=== PATIENT | female | born 1950 | race Caucasian/White ===

== ENCOUNTER → 2022-07-12 09:58 | Outpatient (CLI) | payer MEDICARE, SELFPAY ==
[2022-07-12 10:57] LABS: Add Manual Diff / Slide Review NO; Basophils Absolute Auto 0 /uL (0-100); Basophils Percent Auto 0.9 % (0-2); Eosinophils Absolute Auto 100 /uL (0-450); Eosinophils Percent Auto 1.2 % (2-4); Hematocrit 40.4 % (36-46); Hemoglobin 13.3 g/dL (12.0-16.0); Lymphocytes Absolute Auto 1100 /uL (1100-4500); Lymphocytes Percent Auto 21.9 % (25-40); Mean Corpuscular Hemoglobin 29.7 PG (26-34); Mean Corpuscular Volume 90.1 fL (80-100); Monocytes Absolute Auto 400 /uL (0-900); Monocytes Percent Auto 7.7 % (3-14); Neutrophils Absolute Auto 3300 /uL (1500-7000); Neutrophils Percent Auto 68.3 % (50-75); Platelet Count 242 X10^3/uL (150-400); Red Blood Cell Count 4.48 X10^6/uL (4.0-5.2); Red Cell Distribution Width 14.4 % (11.6-14.8); White Blood Cell Count 4.9 X10^3/uL (4.5-11.0)
[2022-07-12 11:15] LABS: Erythrocyte Sedimentation Rate 14 MM/HR (0-20)
[2022-07-12 11:17] LABS: Alanine Aminotransferase 18 IU/L (<35); Albumin 4.2 g/dL (3.5-5.0); Albumin Globulin Ratio 1.6 (1.0-2.8); Alkaline Phosphatase 74 U/L (38-126); Aspartate Aminotransferase 22 IU/L (14-36); BUN Creatinine Ratio 13.1 (6-22); Bilirubin Total 0.4 mg/dL (0.2-1.3); Blood Urea Nitrogen 11 mg/dL (7-17); Calcium 9.1 mg/dL (8.4-10.2); Carbon Dioxide 28 mmol/L (22-32); Chloride 103 mmol/L (98-107); Cholesterol 179 mg/dL (140-199); Estimated Glomerular Filt Rate > 60 mL/min (>60); Globulin 2.6 g/dL (1.7-4.1); Glucose 85 mg/dL (80-110); HDL Cholesterol 54 mg/dL (40-60); HEMOLYSIS < 15 (0-50); LDL Cholesterol Calculated 83 mg/dL (<100); Potassium 4.6 mmol/L (3.4-5.1); Sodium 138 mmol/L (137-145); Total Protein 6.8 g/dL (6.3-8.2); Triglycerides 211 mg/dL (35-150)
[2022-07-12 11:35] LABS: Vitamin D 25 Hydroxy (D3) 32.4 ng/mL (30.0-100.0)
[2022-07-12 11:48] LABS: Ferritin 544 ng/mL (11-264)
[2022-07-12 11:50] LABS: TSH w/ Reflex to FT4 1.58 uIU/mL (0.47-4.68)
[2022-07-12 12:19] LABS: Folate 5.2 ng/mL (2.76-20.0); Vitamin B12 876 pg/mL (239-931)
== END ==
PROVIDERS: PCP Family Medicine; Referring Provider Family Medicine; Visit Provider Family Medicine
DX: D50.8 Other iron deficiency anemias (principal); Z79.899 Other long term (current) drug therapy; K46.9 Unspecified abdominal hernia without obstruction or gangrene; M25.59 Pain in other specified joint; M79.10 Myalgia, unspecified site; Z78.0 Asymptomatic menopausal state; Z13.220 Encounter for screening for lipoid disorders; R53.83 Other fatigue
CPT/HCPCS: 36415; 80053; 80061; 82306; 82607; 82728; 82746; 84443; 85025; 85651

== ENCOUNTER → 2022-08-04 10:54 | Outpatient (CLI) | payer MEDICARE, SELFPAY ==
--- NOTE | 2022-08-04 | DI.US.S_ITS ---
PROCEDURE: US ABDOMEN LIMITED INDICATIONS: VENTRAL LUMP SUPERIOR TO UMBILICUS TECHNIQUE: Real-time focused scanning was performed of the abdomen, with image documentation. COMPARISON: None. FINDINGS: At the patient indicated area of clinical concern, the ventral abdominal wall superior to the umbilicus, an ovoid structure is present containing fluid and internal echoes with posterior acoustic shadowing. The findings are suspicious for a ventral abdominal wall hernia containing fluid and bowel, however a hernia neck is not visualized, possibly obscured by the posterior acoustic shadowing. This finding was noncompressible with transducer pressure. In the sagittal plane, this area measures approximately 5.3 x 2.3 cm. IMPRESSION: Findings suspicious for a ventral abdominal wall hernia superior to the umbilicus, corresponding to the patient indicated area of concern. A hernia neck was not visualized, possibly related to artifact. A non-specific soft tissue mass is not excluded. CT could be obtained for further evaluation if clinically indicated. Dictated by: Rodri Everett M.D. on 08/04/2022 at 12:57 Approved by: Rodri Everett M.D. on 08/04/2022 at 13:04
== END ==
PROVIDERS: PCP Family Medicine; Referring Provider Family Medicine; Visit Provider Family Medicine
DX: K46.9 Unspecified abdominal hernia without obstruction or gangrene (principal)
CPT/HCPCS: 76705

== ENCOUNTER → 2022-10-24 09:38 | Outpatient (CLI) | payer MEDICARE, SELFPAY ==
[2022-10-24 10:20] LABS: Add Manual Diff / Slide Review NO; Basophils Absolute Auto 0 /uL (0-100); Basophils Percent Auto 0.4 % (0-2); Eosinophils Absolute Auto 100 /uL (0-450); Eosinophils Percent Auto 1.2 % (2-4); Hematocrit 41.6 % (36-46); Lymphocytes Absolute Auto 1000 /uL (1100-4500); Lymphocytes Percent Auto 21.1 % (25-40); Mean Corpuscular HGB Conc 33.6 % (30-36); Mean Corpuscular Hemoglobin 29.9 PG (26-34); Mean Corpuscular Volume 89.1 fL (80-100); Monocytes Absolute Auto 400 /uL (0-900); Monocytes Percent Auto 7.9 % (3-14); Neutrophils Absolute Auto 3300 /uL (1500-7000); Neutrophils Percent Auto 69.4 % (50-75); Platelet Count 204 X10^3/uL (150-400); Red Blood Cell Count 4.67 X10^6/uL (4.0-5.2); Red Cell Distribution Width 14.9 % (11.6-14.8); White Blood Cell Count 4.8 X10^3/uL (4.5-11.0)
[2022-10-24 10:35] LABS: Alanine Aminotransferase 18 IU/L (<35); Albumin 4.1 g/dL (3.5-5.0); Albumin Globulin Ratio 1.4 (1.0-2.8); Alkaline Phosphatase 68 U/L (38-126); Aspartate Aminotransferase 22 IU/L (14-36); BUN Creatinine Ratio 14.8 (6-22); Bilirubin Total 0.6 mg/dL (0.2-1.3); Blood Urea Nitrogen 13 mg/dL (7-17); Calcium 8.8 mg/dL (8.4-10.2); Carbon Dioxide 30 mmol/L (22-32); Chloride 102 mmol/L (98-107); Cholesterol 213 mg/dL (140-199); Estimated Glomerular Filt Rate > 60 mL/min (>60); Glucose 93 mg/dL (80-110); HDL Cholesterol 51 mg/dL (40-60); HEMOLYSIS < 15 (0-50); LDL Cholesterol Calculated 116 mg/dL (<100); Potassium 4.3 mmol/L (3.4-5.1); Sodium 138 mmol/L (137-145); Total Protein 7.1 g/dL (6.3-8.2); Triglycerides 231 mg/dL (35-150)
[2022-10-24 11:08] LABS: Ferritin 395 ng/mL (11-264)
[2022-10-24 11:34] LABS: Creatinine Urine Random 50.2 mg/dL
[2022-10-24 11:46] LABS: Microalbumin Urine Random < 0.6 mg/dL (0-1.6)
== END ==
PROVIDERS: PCP Family Medicine; Referring Provider Family Medicine; Visit Provider Family Medicine
DX: I10 Essential (primary) hypertension (principal); D50.8 Other iron deficiency anemias; E78.2 Mixed hyperlipidemia
CPT/HCPCS: 36415; 80053; 80061; 82043; 82570; 82728; 85025

== ENCOUNTER 2022-11-23 13:06 | Observation (INO) | payer MEDICARE, SELFPAY ==
[2022-11-14 12:01] VITALS: BMI 45.7
[2022-11-21] VITALS (18 sets, daily range): BP systolic 101–177; BP diastolic 49–123; PULSE 73–99; RESP 11–94; TEMP 35.8–36.8; O2SAT 5–99; BMI 45.3
[2022-11-21] MEDS: LACTATED RINGERS 1,000 ML 42 ML IV ×3 (11:45→14:47)
[2022-11-21 12:05] LABS: COVID19 -Nasal RAPID Negative (Negative)
--- NOTE | 2022-11-21 12:35 | PM.PREOP ---
Pre-operative Note Interval Note History & Physical reviewed/Exam performed by Physician: Yes Changes to H&P: No
[2022-11-21] MEDS: CEFAZOLIN 2 GM/100 ML PREMIX 100 ML IV (12:50)
--- NOTE | 2022-11-21 13:18 | SUR.OPER ---
Supine on padded OR bed, head on pillow, pink anti-slide foam under torso. Right arm padded and tucked, left arm padded and extended on armboard. legs uncrossed, safety belt at thigh, tape over blanket over lower legs. Pt positioned per direction and supervision of Dr Betancourt.
[2022-11-21] MEDS: BUPIVACAINE 0.25% W/ EPI 30 ML VIAL INJ (13:44)
--- NOTE | 2022-11-21 15:46 | P.OP_ITS ---
Operative Date/Time/Diagnoses Date of procedure: 11/21/22 Time of procedure: 15:46 Pre-op diagnosis: Ventral hernia repair. Defect size 2 cm x 2 cm Post-op diagnosis: same Procedure & Clinicians Procedure: Laparoscopic ventral hernia repair Same procedure as scheduled: Yes Indications: Symptomatic ventral hernia with large sac. Surgeon: Dawna Betancourt Click Yes if Unassisted: Yes Anesthesia Type: General Operative Notes Findings: There was a large amount of content within the hernia sac which had been measured by ultrasound as up to 5 cm in size. The actual hernia defect was measured intraoperatively and found to be 2 cm x 2 cm. There was incarcerated omentum and some colon within the sac. Specimen(s): none sent Prosthetic devices, grafts, tissues, transplants, or devices: A composite Ventralex 12 x 8 cm mesh was placed Estimated Blood Loss (mL): 50 Procedure in detail: Patient was taken to the operating room and placed supine on the operating room table her right arm was tucked and her left was extended. Time-out was performed. Antibiotics were given and bilateral SCDs were in place. General endotracheal anesthesia was induced. The abdomen was then prepped and draped in the usual sterile fashion. The intra-abdominal space was accessed using an open technique a right lower quadrant 10 mm incision was made overlying the rectus muscle. The incision was then carried down through the subcutaneous tissue and the anterior rectus sheath was incised. Two 0 Vicryl sutures in an interrupted fashion were placed as stay sutures. Next the rectus muscle was gently split with a finger and the posterior sheath was grasped with a Raj due to the depth of this inner layer I had a difficult time using a direct visualization to open that posterior rectus sheath. Therefore I elevated the posterior fascia with the Raj and entered the abdominal space with varus needle. The water drop technique was used to verify an appropriate position and the insufflation was commenced with an opening pressure of 0 mmHg. The abdomen was then insufflated to a pressure of 15 mmHg. Patient tolerated this well. At this point I made a small incision in the posterior fascia using a long Metzenbaum scissors and placed the Min trocar into the abdomen. I blew up the balloon and secured the trocar in place. Next I placed a camera in the abdomen and inspected for trocar entry injury and none was seen. The midline ventral hernia was seen in the expected position above the umbilicus and contained large amount of omental tissue. Next accessory trocars 5 mm were placed in the lateral right abdomen under direct visualization after infusing local anesthesia. An additional 5 mm trocar was placed in the right lower quadrant using the same technique. Laparoscopic graspers were introduced into the abdomen and used to reduce the hernia contents. After relieving a large portion of omentum from the defect a small portion of colon could be seen entering as well. This was gently released from the defect. Next I incised the sac circumferentially to clear up the fascial edges. I then reduced the remainder of the hernia sac into the abdomen. I measured the fascial defect and selected the mesh which was prepared with 0 Prolene sutures placed in the 4 quadrants. It was then introduced into the abdomen and using a [employer] device I secured the stay sutures in the 4 quadrants of the mesh taking full-thickness fascial bites. After securing all 4 quadrants in the same fashion I turned my attention to inspecting the contents of the hernia sac that had been reduced in particular the portion of colon. This seemed intact and no injuries were appreciated. I decreased the pneumoperitoneum to 8 mmHg in order to secure the 0 Prolene sutures. I then removed the accessory trocars under direct visualization and desufflated the abdomen. The previously placed stay sutures had been inadvertently removed by the surgical elastic knitter and 2 Raj graspers were used to find the anterior rectus sheath and replace an 0 Vicryl suture in a [id number] to close the 10 mm port site in the right lower quadrant. The skin of all of the trocar sites was then closed with running 4-0 Monocryl and dressed with skin glue. Patient tolerated the procedure well and went in good condition to the postoperative care unit EBL was 50 mL and there were no complications. Complications: none Post-operative Condition: stable Disposition: PACU Plan for aftercare: admit to floor.
[2022-11-21] MEDS: HYDROMORPHONE 2 MG INJ (16:31)
[2022-11-21] MEDS: OXYCODONE IR 5 MG TABLET PO (16:55)
[2022-11-21] MEDS: HYDROMORPHONE 1 MG INJ IV (19:05)
[2022-11-21] MEDS: DOCUSATE 100 MG CAPSULE PO (21:33)
[2022-11-21] MEDS: OXYCODONE IR 10 MG TABLET PO (21:33)
[2022-11-21] MEDS: KETOROLAC 30 MG/ML VIAL IV (21:46)
[2022-11-21] MEDS: ACETAMINOPHEN 325 MG TABLET 975 MG PO (21:47)
[2022-11-22] VITALS (8 sets, daily range): BP systolic 97–137; BP diastolic 45–67; PULSE 63–83; RESP 14–18; TEMP 36.4–36.8; O2SAT 92–97
[2022-11-22] MEDS: KETOROLAC 30 MG/ML VIAL IV (03:56)
[2022-11-22] MEDS: OXYCODONE IR 10 MG TABLET PO ×2 (03:56→14:11)
[2022-11-22] MEDS: ACETAMINOPHEN 325 MG TABLET 975 MG PO ×4 (03:57→23:01)
[2022-11-22 05:57] LABS: Estimated Glomerular Filt Rate > 60 mL/min (>60)
[2022-11-22] MEDS: OXYCODONE IR 5 MG TABLET PO (08:33)
[2022-11-22] MEDS: DOCUSATE 100 MG CAPSULE PO ×2 (08:33→21:17)
[2022-11-22] MEDS: ENOXAPARIN 40 MG/0.4 ML SYRINGE SUBCUT ×2 (08:33→21:16)
[2022-11-22] MEDS: KETOROLAC 30 MG/ML VIAL 15 MG IV ×3 (09:24→23:01)
--- NOTE | 2022-11-22 09:33 | P.PN_ITS ---
Subjective Subjective Date Patient Seen: 11/22/22 Interval history: Ms. Leigh is having lot of pain this morning. She is tolerating a regular diet and denies nausea. According to the bedside RN after a few doses of the oral pain medication her pain level has been at a 2 and so seems to be improving. She has been out of bed a few times to go to the bathroom but has not had a lot of activity. Exam Vital Signs (past 8 hours): - 11/22/22 04:00 11/22/22 08:00 11/22/22 08:00 Temperature 97.6 F 98.3 F Pulse Rate 83 81 Respiratory Rate 17 18 Blood Pressure 137/61 104/54 L Pulse Oximetry 95 96 97 Oxygen Delivery Method Room Air Oxygen Flow Rate 2 2 0 Oxygen Delivery Method Room Air Oxygen Flow Rate 0 Narrative Exam Narrative: She is awake and oriented in no acute distress she is pleasant and appropriate The wounds are clean dry and intact. There may be some mild distention of the abdomen. Objective Labs 11/22/22 05:35 Labs: Laboratory Results - last 24 hr 11/21/22 11/22/22 11:35 05:35 Creatinine 0.79 Estimated GFR > 60 SARS-CoV-2 (PCR) Negative [facility] Medical History (Updated 11/22/22 @ 15:20 by Dawna Betancourt MD) Arthritis Breast cancer (05/2017) Former smoker History of transfusion (2008) HTN (hypertension) Surgical History (Updated 11/14/22 @ 12:12 by Madison Mart RN) Hx of appendectomy (1971) Hx of cholecystectomy (2010) Hx of colonoscopy Hx of tubal ligation (1976) Social History household members: spouse Smoking Status: Former smoker alcohol intake: current Assessment & Plan Assessment and plan (1) Ventral hernia: Qualifiers: Obstruction and gangrene presence: without obstruction or gangrene Qualified Code(s): K43.9 - Ventral hernia without obstruction or gangrene Status: Acute (2) Postoperative pain: Status: Acute (3) Postoperative abdominal pain: Status: Acute Assessment & Plan narrative: She may advance diet as tolerated and continue regular diet if she is tolerating it. Today I would like to see if we can adjust her to only oral pain medications. I would like to try to mobilize her and get her out of bed to the bedside chair at least 3 times a day. I would like to try to encourage her to ambulate and do the incentive spirometer. If she is still continuing to have difficulty with movement and ambulation tomorrow I will ask for physical therapy evaluation. Anticipate home tomorrow.
--- NOTE | 2022-11-22 11:24 | CM.DANOTE ---
Initial DCP Assessment Note Pt is a 72 yo female, resident of [place], now POD#1 from Laparoscopic ventral hernia repair PCP: Clari Felton Payer: IRENE[employer] Met w/patient to introduce self and role. Patient indp a baseline and assists her who has mild memory loss- mostly needs reminders, med management and some cueing around their home Patient has a niece and sister that are supportive and plan to assist patient and her spouse throughout patient's recovery Patient denies needs from this SHIELD OPERATOR and states appreciation for the visit today CM team will plan to follow closely in case any DC needs or concerns arise, however, expect that patient will discharge home w/family to assist and close outpatient f/u RUSTAM Fonseca Discharge Planning/Care Management Discharge Assessment Start: 11/22/22 11:21 Freq: Status: Active Protocol: Document 11/22/22 11:21 [facility] (Rec: 11/22/22 11:24 [facility] [id number]) Discharge Planning Assessment Assigned Ukrainian Folk Arts Instructor RUSTAM Cordon DPOA/Assigned Designee Name Josh [place], spouse (mild dementia) Contact Information [phone] Advance Directives? Yes Advance Directives on File Yes History Provided By Patient Prior Living Arrangements RV Household Members spouse Type of transporation used prior to Drives own vehicle admit Independent with ADL's Yes Is patient alert and oriented? Yes Barriers to Discharge No Discharge Plan Home
--- NOTE | 2022-11-22 11:40 | PT.IIE ---
Current Diagnoses Other acute postprocedural pain (11/21/22) Ventral hernia without obstruction or gangrene (11/21/22) Unspecified abdominal pain (11/21/22) Surgery Performed Operation Date: 11/21/22 12:30 Actual Procedures p Laparoscopic Ventral Hernia Repair(Not Applicable) - Dawna Betancourt MD Surgical History (Last Updated 11/14/22 @ 12:12 by Madison Mart, RN) Hx of appendectomy (1971) Hx of cholecystectomy (2010) Hx of colonoscopy Hx of tubal ligation (1976) Medical History (Last Updated 11/14/22 @ 12:12 by Madison Mart RN) Arthritis Breast cancer (05/2017) Former smoker History of transfusion (2008) HTN (hypertension) Physical Therapy Inpatient Evaluation/Re-Eval M1 PT/OT-IP Prior Functional Status Start: 11/22/22 11:42 Freq: NEEDED Status: Active Protocol: Document 11/22/22 11:43 [facility] (Rec: 11/22/22 11:56 [facility] [id number]) Medical Review Prior Functional Status Medical History Reviewed Yes Communication communication with nursing prior to PT Mobility and Gait pt ambulated IND prior to surgery Social History Household Members spouse Living Arrangements RV Number of Floors (Floors) One Floor Number of Stairs To Enter/Railing? 3 steps with rail on one side Home Environment Standard Height Toilet M2 PT-IP Current Condition Start: 11/22/22 11:42 Freq: NEEDED Status: Active Protocol: Document 11/22/22 11:43 [facility] (Rec: 11/22/22 11:56 [facility] [id number]) Physical Therapy Current Condition Current Condition Evaluation Date 11/22/22 Treatment Diagnosis s/p post op hernia repair Onset Date 11/21/22 M3 PT-IP Subjective Start: 11/22/22 11:42 Freq: NEEDED Status: Active Protocol: Document 11/22/22 11:43 [facility] (Rec: 11/22/22 11:56 [facility] [id number]) Subjective Physical Therapy Visit Type Type Initial Evaluation Visit Start Time 11:20 Visit Stop Time 11:40 Total Visit Minutes 20 Therapy Pain Assessment Pain When Pain Assessed At Rest Pain Present Pain Present Pain Reported Location abdomen Intensity 3 Scale Used Numeric (0 - 10) Description With Movement Pain Management Techniques Timing of Activity with Medications M4 PT-IP Mobility and Gait Start: 11/22/22 11:42 Freq: NEEDED Status: Active Protocol: Document 11/22/22 11:43 [facility] (Rec: 11/22/22 11:56 [facility] [id number]) PT-Transfer Assessment Sit to and From Stand Sit to and from Stand Contact Guard Assistance Equipment Transfer Assistive Device Gait Belt,Front Wheeled Walker Orthotic/Prosthetic Devices or Brace: No Transfer Ability Level of Assist Contact Guard Assistance Comments Mobility Comments pt was sitting up in the bedside chair as she had just gotten up with nursing. She had ambulated to the bathroom with fww and then to the bedside chair. She agreed to PT eval even though she was a little fatigued from earlier activity. Pt was CGA for sit- stand. She was able to push up through the arm rests of the chair. I did use a gait belt up high above the hernia repair incision Gait Assessment Gait Gait Assistance Required: Contact Guard Assist Distance (Feet) 20 Able to Maintain Weight Bearing Status Yes During Gait Assistive Devices Assistive Device Gait Belt,Front Wheeled Walker Orthotic/Prosthetic Devices or Brace: No Gait Deviations General Gait Pattern Within Normal Limits,Ataxic, Wide Based Gait Factors Limiting Gait Function Factors Limiting Gait Function Decreased Activity Tolerance, Pain Comments Gait Comments pt ambulated in room with FWW. She was CGA. Pt has 3 steps to get up to her RV but she did not feel she was up to attempting steps this am. I did work with her on gait with CGA and without the walker as she is not sure she needs a walker for home. She was able to stay steady on her feet with arm support and moving slowly and she walked 10 feet without fww. Pt notes it is approximately a car length walk on gravel to get to her RV and she doesn't think a walker would work as she would have to pick it up. She prefers walking with her for support. M5 PT-IP Objective Assessments Start: 11/22/22 11:42 Freq: NEEDED Status: Active Protocol: Document 11/22/22 11:43 [facility] (Rec: 11/22/22 11:56 [facility] [id number]) Orientation Orientation/Cognition Level of Alertness Alert Gross Range of Motion Upper Extremity ROM Assessment Within Functional Limits Lower Extremity ROM Assessment Within Functional Limits Strength Upper Extremity Strength Assessment Within Functional Limits Lower Extremity Strength Assessment Within Functional Limits Coordination Assessment Gross Coordination Gross Coordination WNL M6 PT-IP Treatment Start: 11/22/22 11:42 Freq: NEEDED Status: Active Protocol: Document 11/22/22 11:43 [facility] (Rec: 11/22/22 11:56 [facility] [id number]) Physical Therapy Treatment Exercises Exercises Ankle Pumps M7 PT-IP Assessment and Plan Start: 11/22/22 11:42 Freq: NEEDED Status: Active Protocol: Document 11/22/22 11:43 [facility] (Rec: 11/22/22 11:56 [facility] [id number]) PT Summary Assessment and Plan Potential Rehabilitation Potential Excellent Status of Condition at Evaluation Stable Summary Impairments Pain,Transfers,Gait,Activity Tolerance Assessment Summary pt is a 72 year old female 1 day S/P ventral hernia repair. Pt plans on DC home tomorrow with her and also has a sister and niece who live near by who will be checking on her. She lives in [facility]. Pt has 3 steps to get up into her RV with one rail. She was sitting up in the bedside chair when PT arrived today and had just ambulated with nursing to the bathroom with FWW. Patient presented with CGA for transfers and gait x 20 feet in room with FWW. I did also work with her on ambulation without walker and supported her left elbow which she did well with. As mentioned above she has a car length distance to ambulate prior to entering her RV and it is on gravel so she is concerned about using a walker and would like to use her for support to ambulate this distance. She was able to demonstrate good mobility with me for support and I feel she would be able to do this for transfering into her RV. She will need stair training in the AM prior to DC as she did not feel up to attempting stairs this am. Goals Bed Mobility Goal Independent Transfer Goal Standby Assistance Gait Goal Contact Guard Assistance Gait Distance 50 Other Goals pt is able to ambulate up and down 3 stairs with right sided railing Frequency of Treatment Frequency Of Treatment Once a Day Treatment Plan Physical Therapy Treatment Plan Transfer Training,Gait Training Other Recommendations and Next Treatment work on stair training in am Focus prior to DC home Discharge Recommendations Transportation Needs at Discharge Private Vehicle
--- NOTE | 2022-11-22 11:56 | PT.IIE ---
Current Diagnoses Ventral hernia without obstruction or gangrene (11/21/22) Surgery Performed Operation Date: 11/21/22 12:30 Actual Procedures p Laparoscopic Ventral Hernia Repair(Not Applicable) - Dawna Betancourt MD Surgical History (Last Updated 11/14/22 @ 12:12 by Madison Mart, RN) Hx of appendectomy (1971) Hx of cholecystectomy (2010) Hx of colonoscopy Hx of tubal ligation (1976) Medical History (Last Updated 11/14/22 @ 12:12 by Madison Mart RN) Arthritis Breast cancer (05/2017) Former smoker History of transfusion (2008) HTN (hypertension) Physical Therapy Inpatient Evaluation/Re-Eval M1 PT/OT-IP Prior Functional Status Start: 11/22/22 11:42 Freq: NEEDED Status: Active Protocol: Document 11/22/22 11:43 [facility] (Rec: 11/22/22 11:56 [facility] [id number]) Medical Review Prior Functional Status Medical History Reviewed Yes Communication communication with nursing prior to PT Mobility and Gait pt ambulated IND prior to surgery Social History Household Members spouse Living Arrangements RV Number of Floors (Floors) One Floor Number of Stairs To Enter/Railing? 3 steps with rail on one side Home Environment Standard Height Toilet M2 PT-IP Current Condition Start: 11/22/22 11:42 Freq: NEEDED Status: Active Protocol: Document 11/22/22 11:43 [facility] (Rec: 11/22/22 11:56 [facility] [id number]) Physical Therapy Current Condition Current Condition Evaluation Date 11/22/22 M3 PT-IP Subjective Start: 11/22/22 11:42 Freq: NEEDED Status: Active Protocol: Document 11/22/22 11:43 [facility] (Rec: 11/22/22 11:56 [facility] [id number]) Subjective Physical Therapy Visit Type Type Initial Evaluation Visit Start Time 11:20 Visit Stop Time 11:40 Total Visit Minutes 20 Therapy Pain Assessment Pain When Pain Assessed At Rest Pain Present Pain Present Pain Reported Location abdomen Intensity 3 Scale Used Numeric (0 - 10) Description With Movement Pain Management Techniques Timing of Activity with Medications M4 PT-IP Mobility and Gait Start: 11/22/22 11:42 Freq: NEEDED Status: Active Protocol: Document 11/22/22 11:43 [facility] (Rec: 11/22/22 11:56 [facility] [id number]) PT-Transfer Assessment Sit to and From Stand Sit to and from Stand Contact Guard Assistance Equipment Transfer Assistive Device Gait Belt,Front Wheeled Walker Orthotic/Prosthetic Devices or Brace: No Transfer Ability Level of Assist Contact Guard Assistance Comments Mobility Comments pt was sitting up in the bedside chair as she had just gotten up with nursing. She had ambulated to the bathroom with fww and then to the bedside chair. She agreed to PT eval even though she was a little fatigued from earlier activity. Pt was CGA for sit- stand. She was able to push up through the arm rests of the chair. I did use a gait belt up high above the hernia repair incision Gait Assessment Gait Gait Assistance Required: Contact Guard Assist Distance (Feet) 20 Able to Maintain Weight Bearing Status Yes During Gait Assistive Devices Assistive Device Gait Belt,Front Wheeled Walker Orthotic/Prosthetic Devices or Brace: No Gait Deviations General Gait Pattern Within Normal Limits,Ataxic, Wide Based Gait Factors Limiting Gait Function Factors Limiting Gait Function Decreased Activity Tolerance, Pain Comments Gait Comments pt ambulated in room with FWW. She was CGA. Pt has 3 steps to get up to her RV but she did not feel she was up to attempting steps this am. I did work with her on gait with CGA and without the walker as she is not sure she needs a walker for home. She was able to stay steady on her feet with arm support and moving slowly and she walked 10 feet without fww. Pt notes it is approximately a car length walk on gravel to get to her RV and she doesn't think a walker would work as she would have to pick it up. She prefers walking with her for support. M5 PT-IP Objective Assessments Start: 11/22/22 11:42 Freq: NEEDED Status: Active Protocol: Document 11/22/22 11:43 [facility] (Rec: 11/22/22 11:56 [facility] [id number]) Orientation Orientation/Cognition Level of Alertness Alert Gross Range of Motion Upper Extremity ROM Assessment Within Functional Limits Lower Extremity ROM Assessment Within Functional Limits Strength Upper Extremity Strength Assessment Within Functional Limits Lower Extremity Strength Assessment Within Functional Limits Coordination Assessment Gross Coordination Gross Coordination WNL M6 PT-IP Treatment Start: 11/22/22 11:42 Freq: NEEDED Status: Active Protocol: Document 11/22/22 11:43 [facility] (Rec: 11/22/22 11:56 [facility] [id number]) Physical Therapy Treatment Exercises Exercises Ankle Pumps M7 PT-IP Assessment and Plan Start: 11/22/22 11:42 Freq: NEEDED Status: Active Protocol: Document 11/22/22 11:43 [facility] (Rec: 11/22/22 11:56 [facility] [id number]) PT Summary Assessment and Plan Potential Rehabilitation Potential Excellent Status of Condition at Evaluation Stable Summary Impairments Pain,Transfers,Gait,Activity Tolerance Assessment Summary pt is a 72 year old female 1 day S/P ventral hernia repair. Pt plans on DC home tomorrow with her and also has a sister and niece who live near by who will be checking on her. She lives in a RV at [facility]. Pt has 3 steps to get up into her RV with one rail. She was sitting up in the bedside chair when PT arrived today and had just ambulated with nursing to the bathroom with FWW. Patient presented with CGA for transfers and gait x 20 feet in room with FWW. I did also work with her on ambulation without walker and supported her left elbow which she did well with. As mentioned above she has a car length distance to ambulate prior to entering her RV and it is on gravel so she is concerned about using a walker and would like to use her for support to ambulate this distance. She was able to demonstrate good mobility with me for support and I feel she would be able to do this for transferring into her RV. She will need stair training in the AM prior to DC as she did not feel up to attempting stairs this am. Goals Bed Mobility Goal Independent Transfer Goal Standby Assistance Gait Goal Contact Guard Assistance Gait Distance 50 Other Goals pt is able to ambulate up and down 3 stairs with right sided railing Frequency of Treatment Frequency Of Treatment Once a Day Treatment Plan Physical Therapy Treatment Plan Transfer Training,Gait Training Other Recommendations and Next Treatment work on stair training in am Focus prior to DC home Discharge Recommendations Transportation Needs at Discharge Private Vehicle
[2022-11-22] MEDS: ONDANSETRON 4 MG/2 ML INJ IV (18:58)
[2022-11-22] MEDS: HYDROMORPHONE 1 MG INJ IV (18:58)
[2022-11-22] MEDS: SODIUM CHLORIDE 0.9% FLUSH 10 ML IV (23:02)
[2022-11-23] VITALS (8 sets, daily range): BP systolic 108–138; BP diastolic 52–81; PULSE 69–83; RESP 18–20; TEMP 35.7–36.6; O2SAT 91–98
[2022-11-23] MEDS: ACETAMINOPHEN 325 MG TABLET 975 MG PO ×3 (04:44→18:41)
[2022-11-23] MEDS: KETOROLAC 30 MG/ML VIAL 15 MG IV ×3 (04:44→18:01)
[2022-11-23] MEDS: SODIUM CHLORIDE 0.9% FLUSH 10 ML IV ×3 (04:45→21:01)
[2022-11-23] MEDS: ONDANSETRON 4 MG/2 ML INJ IV ×2 (07:48→16:15)
[2022-11-23] MEDS: ENOXAPARIN 40 MG/0.4 ML SYRINGE SUBCUT (09:19)
[2022-11-23] MEDS: DOCUSATE 100 MG CAPSULE PO ×2 (09:19→21:01)
--- NOTE | 2022-11-23 11:45 | PT.IPTN ---
Current Diagnoses Other acute postprocedural pain (11/21/22) Ventral hernia without obstruction or gangrene (11/21/22) Unspecified abdominal pain (11/21/22) Surgery Performed Operation Date: 11/21/22 12:30 Actual Procedures p Laparoscopic Ventral Hernia Repair(Not Applicable) - Dawna Betancourt MD Physical Therapy Treatment Note M2 PT-IP Current Condition Start: 11/22/22 11:42 Freq: NEEDED Status: Active Protocol: Document 11/23/22 10:57 SP (Rec: 11/23/22 12:16 SP [id number]) Physical Therapy Current Condition Current Condition Evaluation Date 11/22/22 Treatment Diagnosis s/p post op hernia repair Onset Date 11/21/22 M3 PT-IP Subjective Start: 11/22/22 11:42 Freq: NEEDED Status: Active Protocol: Document 11/23/22 10:57 SP (Rec: 11/23/22 12:16 SP [id number]) Subjective Physical Therapy Visit Type Type Treatment Note Visit Start Time 10:57 Visit Stop Time 11:45 Total Visit Minutes 48 Notes in room, completed caregiver training including don gait belt, support during gait/transfers. Number of COMMISSIONER OF INTERNAL REVENUE Visits 1 Therapy Pain Assessment Pain When Pain Assessed During Mobility Pain Present Pain Present Pain Reported Location abdomen Intensity 4 Pain Management Techniques Distraction,Re-positioning, Timing of Activity with Medications M4 PT-IP Mobility and Gait Start: 11/22/22 11:42 Freq: NEEDED Status: Active Protocol: Document 11/23/22 10:57 SP (Rec: 11/23/22 12:16 SP [id number]) PT-Bed Mobility Assessment Rolling Type of Rolling Log Rolling,Roll to Left Level of Assist Contact Guard Assistance,1 Person Assistance Sit to Supine Sit to Supine Moderate Assistance,1 Person Assistance,Bedrails PT-Transfer Assessment Sit to and From Stand Sit to and from Stand Standby Assistance,Contact Guard Assistance,Use of Upper Extremities Equipment Transfer Assistive Device None,Gait Belt,Front Wheeled Walker Orthotic/Prosthetic Devices or Brace: No Transfers Transfer Destination Bed,Wheelchair Transfer Technique ambulated no AD Min A, CG/SBA w/ FWW Comments Mobility Comments Extra time taken assess vitals / O2 for safety: BP 129/80 HR 69 SaO2 94% on 2L, Mid 80s on RA, 87% on1L, Mobility 87-94% on 2L with increased respiratory rate. Completed gait room DUTY OFFICER R UE Mod pressure support for stability 10 ft and had to stop catch breath while additional reaching for end of bed extra support. Improved CG/ SBA w/ FWW and agreed will need at home use. Gait to w/c in hallway 10ft SBA therapist managed Supplimental O2 line, good step back w/ FWW fully and reach wc slow descent SBA. wheeled to stairs, complete 3 stairs BUE on L HR CGA via slow steady/ stable. Gait further distance back to room approx 200 ft w/c follow but not needed appor x91-94% on 2L required, cued slow breath and pacing for energy conservation safety. stand>sit SBA>supine Mod A for BLEs into bed cues for use bed rail and lay on side then log roll to back with good ab fac support low pain. Gait Assessment Gait Gait Assistance Required: Standby Assistance,Contact Guard Assist,1 Person Assist Distance (Feet) 200 Able to Maintain Weight Bearing Status Yes During Gait Assistive Devices Assistive Device None,Gait Belt,Front Wheeled Walker Orthotic/Prosthetic Devices or Brace: No Gait Deviations General Gait Pattern Within Normal Limits,Ataxic, Decreased Stride Length, Decreased Feet Clearance,Wide Based Gait Factors Limiting Gait Function Factors Limiting Gait Function Decreased Activity Tolerance, Decreased Strength,Pain,Poor Balance,Respiratory Distress Comments Gait Comments cued upright posturing slow pacing control. Stair Climbing Assessment Evaluation Level of Assist On Stairs Contact Guard Assistance,1 Person Assistance Devices Stair Climbing Assistive Devices Left Railing Technique/Endurance Stair Climbing Direction Ascend and Descend Stair Climbing Technique Step to Step Number of Steps Climbed 3 Stair Climbing Set # Repetitions (reps) 1 Comments Stair Climbing Comments mod heavy UE support on LHR. slow and stable. PT-Balance Assessment Sitting Balance and Reactions Static Sitting Balance Ability Good Dynamic Sitting Balance Ability Good Standing Balance and Reactions Static Standing Balance Ability Fair Dynamic Standing Balance Ability Poor Device Used DUTY OFFICER poor, w/ FWW good M5 PT-IP Objective Assessments Start: 11/22/22 11:42 Freq: NEEDED Status: Active Protocol: Document 11/22/22 11:43 [facility] (Rec: 11/22/22 11:56 [facility] [id number]) Orientation Orientation/Cognition Level of Alertness Alert Gross Range of Motion Upper Extremity ROM Assessment Within Functional Limits Lower Extremity ROM Assessment Within Functional Limits Strength Upper Extremity Strength Assessment Within Functional Limits Lower Extremity Strength Assessment Within Functional Limits Coordination Assessment Gross Coordination Gross Coordination WNL M6 PT-IP Treatment Start: 11/22/22 11:42 Freq: NEEDED Status: Active Protocol: Document 11/23/22 10:57 SP (Rec: 11/23/22 12:16 SP [id number]) Physical Therapy Treatment Exercises Exercises Ankle Pumps Other Treatments Other Treatment Performed cued core fac during mobility for support and pain control. Ed for support upright sitting to allow abdominal support. M7 PT-IP Assessment and Plan Start: 11/22/22 11:42 Freq: NEEDED Status: Active Protocol: Document 11/23/22 10:57 SP (Rec: 11/23/22 12:16 SP [id number]) PT Summary Assessment and Plan Potential Rehabilitation Potential Excellent Status of Condition at Evaluation Stable Summary Impairments Pain,Strength,Balance,Bed Mobility,Transfers,Gait, Activity Tolerance Progress Towards Goals Slow Progress due to Pain,Slow Progress due to Activity Tolerance,Slow Progress - Other Assessment Summary Pt increase respiratory stress requiring supplimental O2 to allow low 90s saturation level , nursing notified and watching pt for medical safety , is on RA at home. requires Mod A DUTY OFFICER and SBA w/ FWW to allow stabiliyt support. Pt recommending home 19/03 with when medically cleared . Pt declined HHPT when suggested. Goals Bed Mobility Goal Independent Transfer Goal Standby Assistance Gait Goal Contact Guard Assistance Gait Distance 50 Other Goals pt is able to ambulate up and down 3 stairs with right sided railing Frequency of Treatment Frequency Of Treatment Once a Day Treatment Plan Physical Therapy Treatment Plan Transfer Training,Gait Training Other Recommendations and Next Treatment bed mob but will sleep in Focus recliner at home. further distance gait w/ FWW and progress no AD when aable. Recommendations To Nursing Amount of Assist Needed 1 Person Assist Discharge Recommendations PT Discharge Recommendations Home with Assistance,Home with 19/03 Assist Available Equipment Needed for Home Before FWW Discharge Transportation Needs at Discharge Private Vehicle
--- NOTE | 2022-11-23 17:32 | P.PN_ITS ---
Subjective Subjective Date Patient Seen: 11/23/22 Time Patient Seen: 17:33 Interval history: Feeling slightly better today but still quite immobile Tolerating a diet Exam Vital Signs (past 8 hours): - 11/23/22 11:45 11/23/22 16:06 Temperature 97.5 F L 97.8 F Pulse Rate 75 69 Respiratory Rate 20 18 Blood Pressure 118/65 137/81 Pulse Oximetry 91 96 Oxygen Flow Rate 2 2 Fraction of Inspired Oxygen 28 SaO2/FiO2 Ratio 335 Oxygen Delivery Method Nasal Cannula Oxygen Flow Rate 2 Narrative Exam Narrative: Incisions are clean dry and intact Objective Labs 11/22/22 05:35 [facility] Medical History (Updated 11/22/22 @ 15:20 by Dawna Betancourt MD) Arthritis Breast cancer (05/2017) Former smoker History of transfusion (2008) HTN (hypertension) Surgical History (Updated 11/14/22 @ 12:12 by Madison Mart RN) Hx of appendectomy (1971) Hx of cholecystectomy (2010) Hx of colonoscopy Hx of tubal ligation (1976) Social History household members: spouse Smoking Status: Former smoker alcohol intake: current Assessment & Plan Assessment and plan (1) Ventral hernia: Qualifiers: Obstruction and gangrene presence: without obstruction or gangrene Qualified Code(s): K43.9 - Ventral hernia without obstruction or gangrene Status: Acute Plan Doing well following laparoscopic hernia repair Home when pain is controlled and she move around better
[2022-11-24] VITALS (10 sets, daily range): BP systolic 134–156; BP diastolic 68–87; PULSE 65–82; RESP 16–18; TEMP 36–36.4; O2SAT 93–98
[2022-11-24] MEDS: ONDANSETRON 4 MG/2 ML INJ IV ×3 (00:03→15:53)
--- NOTE | 2022-11-24 08:51 | DI.RAD.S_ITS ---
PROCEDURE: XR ABDOMEN 1V INDICATIONS: distension, nausea, post op TECHNIQUE: One view of the abdomen acquired. COMPARISON: [facility], , ABDOMEN LIMITED, 08/04/2022, 11:27. FINDINGS: Surgical changes and devices: Cholecystectomy clips. Bowel: Bowel gas pattern is overall nonspecific. Scattered stool is present. Soft tissues: No suspicious abdominal calcifications. Visualized solid organ contours appear normal in size. Bones: No suspicious bony lesions. IMPRESSION: Nonspecific gas pattern with scattered stool. Dictated by: Emmanuelle Darnell M.D. on 11/24/2022 at 9:48 Approved by: Emmanuelle Darnell M.D. on 11/24/2022 at 9:48
--- NOTE | 2022-11-24 08:52 | PM.PN.1 ---
Subjective Subjective Date Patient Seen: 11/24/22 Time Patient Seen: 08:52 Interval history: Ms. Leigh is seated and eating breakfast. Yesterday she was feeling very nauseous, but today she feels a little better. She still does not have much of an appetite and states that the food ?just does not taste very good? she does feel constipated and bloated. She has not had a bowel movement since surgery. Exam Vital Signs (past 8 hours): - 11/24/22 04:00 11/24/22 08:04 Temperature 97.5 F L 97.3 F L Pulse Rate 79 75 Respiratory Rate 17 18 Blood Pressure 141/75 H 148/76 H Pulse Oximetry 95 94 Oxygen Flow Rate 1 0 Fraction of Inspired Oxygen 26 SaO2/FiO2 Ratio 361 Oxygen Delivery Method Nasal Cannula Oxygen Flow Rate 0 Narrative Exam Narrative: She is awake alert oriented seated at the bedside pleasant and appropriate. Her wounds on her abdomen are clean dry and intact with skin glue in place. Her abdomen is appropriately tender but moderately distended. Objective Labs 11/22/22 05:35 [facility] Medical History (Updated 11/24/22 @ 08:54 by Dawna Betancourt MD) Arthritis Breast cancer (05/2017) Former smoker History of transfusion (2008) HTN (hypertension) Surgical History (Updated 11/14/22 @ 12:12 by Madison Mart RN) Hx of appendectomy (1971) Hx of cholecystectomy (2010) Hx of colonoscopy Hx of tubal ligation (1976) Social History household members: spouse Smoking Status: Former smoker alcohol intake: current Assessment & Plan Assessment and plan (1) Postoperative nausea: Status: Acute (2) Postoperative abdominal pain: Status: Acute Assessment & Plan narrative: I am going to check an abdominal x-ray to look and see if there is a large backup of stool versus a more ileus like picture. If there is a lot of stool we can start some laxatives to help. If her seeing an ileus really just time and not forcing the diet too quickly will be the best course of action. Encourage her to ambulate in the holden as much as possible and continue PT, DVT prophylaxis. Patient will not be ready for discharge today.
--- NOTE | 2022-11-24 09:30 | PT.IPTN ---
Current Diagnoses Other acute postprocedural pain (11/23/22) Ventral hernia without obstruction or gangrene (11/23/22) Unspecified abdominal pain (11/23/22) Nausea (11/23/22) Other specified postprocedural states (11/23/22) Surgery Performed Operation Date: 11/21/22 12:30 Actual Procedures p Laparoscopic Ventral Hernia Repair(Not Applicable) - Dawna Betancourt MD Physical Therapy Treatment Note M2 PT-IP Current Condition Start: 11/22/22 11:42 Freq: NEEDED Status: Active Protocol: Document 11/24/22 09:18 SP (Rec: 11/24/22 09:47 SP [id number]) Physical Therapy Current Condition Current Condition Evaluation Date 11/22/22 Treatment Diagnosis s/p post op hernia repair Onset Date 11/21/22 M3 PT-IP Subjective Start: 11/22/22 11:42 Freq: NEEDED Status: Active Protocol: Document 11/24/22 09:18 SP (Rec: 11/24/22 09:47 SP [id number]) Subjective Physical Therapy Visit Type Type Treatment Note Visit Start Time 09:18 Visit Stop Time 09:30 Total Visit Minutes 12 Number of POLICE INSPECTOR Visits 2 Physical Therapy Visit Comments Patient Comments Pt agreeable to working with PT, just came back from imaging seated in w/c. Patient Goals return home with spouse Therapy Pain Assessment Pain When Pain Assessed During Mobility Pain Present Pain Present Pain Reported Location abdomen Intensity 3 Scale Used Numeric (0 - 10) Description With Movement Pain Behaviors Facial Grimacing Pain Management Techniques Distraction,Re-positioning, Timing of Activity with Medications M4 PT-IP Mobility and Gait Start: 11/22/22 11:42 Freq: NEEDED Status: Active Protocol: Document 11/24/22 09:18 SP (Rec: 11/24/22 09:47 SP [id number]) PT-Transfer Assessment Sit to and From Stand Sit to and from Stand Standby Assistance,Use of Upper Extremities Equipment Transfer Assistive Device Gait Belt,Front Wheeled Walker Orthotic/Prosthetic Devices or Brace: No Transfers Transfer Destination Chair Transfer Technique w/ FWW Transfer Ability Level of Assist Standby Assistance,Use of Upper Extremities Comments Mobility Comments Pt SBA STS from w/c, gait to room chair w/ fWW sBA, improved steadiness, states good support and breathing more rested. 15 ft. Seated rest O2 92% on RA. STS and gait into hallway approx 150 ft total, O2 decreased to 86- 88% cued stop breath (masked donned for safety in hallway) increased to 89% on RA. returned to chair in room good safety proper FWW positioning and reach back support slow sit SBA. O2 88-89%, cued breath without mask increased to 94% on RA and use of inspirometer. Ed for breath slow good effort at times needed to allow 90s SaO2. Pt is ok to return home with spouse to assist her. Instructed for abdominal support and circulation LE ex: ankle pumps, gentle bracing heel slide small range painfree for abdominals good form and response with understanding. Gait Assessment Gait Gait Assistance Required: Standby Assistance Distance (Feet) 150 Able to Maintain Weight Bearing Status Yes During Gait Assistive Devices Assistive Device Gait Belt,Front Wheeled Walker Orthotic/Prosthetic Devices or Brace: No Gait Deviations General Gait Pattern Wide Based Gait Factors Limiting Gait Function Factors Limiting Gait Function Decreased Activity Tolerance, Decreased Strength,Pain, Respiratory Distress Comments Gait Comments cued as needed for good slower pacing for energy conservation and proper breath . PT-Balance Assessment Sitting Balance and Reactions Static Sitting Balance Ability Normal Dynamic Sitting Balance Ability Normal Standing Balance and Reactions Static Standing Balance Ability Good Dynamic Standing Balance Ability Good Device Used w/ FWW M5 PT-IP Objective Assessments Start: 11/22/22 11:42 Freq: NEEDED Status: Active Protocol: Document 11/22/22 11:43 [facility] (Rec: 11/22/22 11:56 [facility] [id number]) Orientation Orientation/Cognition Level of Alertness Alert Gross Range of Motion Upper Extremity ROM Assessment Within Functional Limits Lower Extremity ROM Assessment Within Functional Limits Strength Upper Extremity Strength Assessment Within Functional Limits Lower Extremity Strength Assessment Within Functional Limits Coordination Assessment Gross Coordination Gross Coordination WNL M6 PT-IP Treatment Start: 11/22/22 11:42 Freq: NEEDED Status: Active Protocol: Document 11/24/22 09:18 SP (Rec: 11/24/22 09:47 SP [id number]) Physical Therapy Treatment Exercises Exercises Ankle Pumps,Heel Slides Other Treatments Other Treatment Performed see mobility comments M7 PT-IP Assessment and Plan Start: 11/22/22 11:42 Freq: NEEDED Status: Active Protocol: Document 11/24/22 09:18 SP (Rec: 11/24/22 09:47 SP [id number]) PT Summary Assessment and Plan Potential Rehabilitation Potential Excellent Status of Condition at Evaluation Stable Summary Impairments Pain,Strength,Balance,Bed Mobility,Transfers,Gait, Activity Tolerance Progress Towards Goals Slow Progress due to Pain,Slow Progress due to Activity Tolerance Assessment Summary Pt improved in stabilitiy and gait w/ FWW today, SBA gait approx 150 ft, states still hasn't had BM and nursing overseeing. Pt is ok to return home with spouse when medically stable, dispensed FWW for BUE, abdominal and energy conservation support. Pt declined need for HHPT. Goals Bed Mobility Goal Independent Transfer Goal Standby Assistance Gait Goal Contact Guard Assistance Gait Distance 50 Other Goals pt is able to ambulate up and down 3 stairs with right sided railing Frequency of Treatment Frequency Of Treatment Once a Day Treatment Plan Physical Therapy Treatment Plan Transfer Training,Gait Training Other Recommendations and Next Treatment further distance gait, stair Focus mgt for strength mobility/ endurance. Recommendations To Nursing Amount of Assist Needed Standby Assistance Discharge Recommendations PT Discharge Recommendations Home with Assistance Equipment Needed for Home Before FWW dispensed Discharge Transportation Needs at Discharge Private Vehicle
[2022-11-24] MEDS: DOCUSATE 100 MG CAPSULE PO ×2 (09:58→20:52)
[2022-11-24] MEDS: SODIUM CHLORIDE 0.9% FLUSH 10 ML IV ×2 (09:59→20:52)
[2022-11-24] MEDS: ACETAMINOPHEN 325 MG TABLET 975 MG PO ×2 (11:01→17:21)
[2022-11-24] MEDS: KETOROLAC 30 MG/ML VIAL 15 MG IV ×2 (11:04→17:21)
--- NOTE | 2022-11-24 14:24 | PC.NURSE ---
1424 Called and left for Dr. Betancourt re: patient feels she cannot tolerate drinking mirilax as her intake has been poor due to nausea and a lack of taste. Patient requesting a different laxative medication. Awaiting call back.
--- NOTE | 2022-11-24 16:43 | PC.NURSE ---
1635 Patient ambulated in hallway 200 ft with FWW. Denies pain. Pt having nausea; treated with zofran. Dr. Betancourt returned call. Telephone orders received for Senna and Reglan PO. See Orders.
[2022-11-24] MEDS: METOCLOPRAMIDE HCL 5 MG TABLET PO (20:52)
[2022-11-25] MEDS: METOCLOPRAMIDE HCL 5 MG TABLET PO ×2 (03:10→09:34)
[2022-11-25 04:00] VITALS: BP 149/82; PULSE 80; RESP 16; TEMP 36.2; O2SAT 93
[2022-11-25 08:22] VITALS: O2SAT 96
[2022-11-25] MEDS: SODIUM CHLORIDE 0.9% FLUSH 10 ML IV (09:36)
[2022-11-25 09:37] VITALS: BP 154/77; PULSE 73; RESP 18; TEMP 36.3; O2SAT 95
--- NOTE | 2022-11-25 13:05 | PC.NURSE ---
Day shift: Paperwork signed and all questions answered. Pt has all personal belongings. scripts sent electronic to Pt's pharmacy. Lap sites TAYLOR with no s/s of infection. Pt denies any pain today. Multiple BM's this AM and voiding well and without issue. Taken to car via WC by ALLY Otto at approx 1310. Pt's Spouse in room for teachings.
--- NOTE | 2022-12-23 15:27 | P.HP_ITS ---
History of Present Illness History of Present Illness Date Patient Seen: 11/21/22 Chief complaint: OPB Narrative: Mrs. Leigh presents today having been sent by her primary care provider for hernia.? This hernia has been there for some time but it has become increasingly irritable.? It is tender to touch and at times it does bulge out.? Things that help if she just relaxes and massages it the pain seems to get better pressing on it makes it worse.? She had had previous surgeries in the past an appendix and gallbladder but is not aware that the hernia is associated with any specific surgery or incision.? She denies gastrointestinal symptoms of nausea constipation.? She has had an ultrasound of the area that was performed on August 04, 2022 there is a hernia identified that has a sac that is about 5 x 2 cm in size but the actual hernia neck and defect was not able to be easily seen on the ultrasound.? Perhaps a body habitus is playing a role with this as well. [facility] Medical History Arthritis Breast cancer (05/2017) Former smoker History of transfusion (2008) HTN (hypertension) Surgical History Hx of appendectomy (1971) Hx of cholecystectomy (2010) Hx of colonoscopy Hx of tubal ligation (1976) Social History household members: spouse Smoking Status: Former smoker alcohol intake: current Meds Home Medications and Allergies Home Medications Medication Instructions Recorded Confirmed Type acetaminophen 650 mg 650 mg PO DAILY 10/17/22 12/05/22 History tablet,extended release (Tylenol Arthritis Pain) ascorbic acid (vitamin C) 1,000 mg 1 g PO DAILY 10/17/22 12/05/22 History tablet cholecalciferol (vitamin D3) 25 75 mcg PO DAILY 10/17/22 12/05/22 History mcg (1,000 unit) capsule loratadine 10 mg tablet (Claritin) 10 mg PO DAILY 10/17/22 12/05/22 History mecobalamin (vitamin B12) 1,000 1,000 mcg PO DAILY 10/17/22 12/05/22 History mcg chewable tablet rosuvastatin 5 mg tablet 5 mg PO DAILY 11/21/22 12/05/22 History docusate sodium 100 mg capsule 100 mg PO BID #30 caps 11/25/22 12/05/22 Rx oxycodone-acetaminophen 5 mg-325 2 tab PO Q6H PRN pain #20 tabs 11/25/22 12/05/22 Rx mg tablet (Percocet) psyllium husk (with sugar) 3.4 1 tbsp PO BID #822 grams 11/25/22 12/05/22 Rx gram/7 gram oral powder (Fiber (psyllium husk-sugar)) Allergies Allergy/AdvReac Type Severity Reaction Status Date / Time Penicillins Allergy Rash, welts Verified 12/05/22 11:20 Exam Vital Signs (past 8 hours): Fraction of Inspired Oxygen 26 SaO2/FiO2 Ratio 361 Oxygen Delivery Method Room Air Oxygen Flow Rate 0 Narrative Exam Narrative: Exam Const General: cooperative, healthy appearing, comfortable and not in acute distress Nutritional Appearance: obese Orientation: alert, awake and oriented x3 HENMT Head: normal to inspection Resp Effort & Inspection: normal respiratory effort and able to speak in complete sentences Cardio Pulses: radial pulses present GI Palpation: soft, hernia (Hernia in the midline above the umbilicus not reducible) and tender (There is a palpable hernia which is tender to deep palpation) Objective Labs 11/22/22 05:35 Assessment & Plan Assessment and plan (1) Ventral hernia: Qualifiers: Obstruction and gangrene presence: without obstruction or gangrene Qualified Code(s): K43.9 - Ventral hernia without obstruction or gangrene Status: Resolved Assessment & Plan narrative: The actual hernia defect size is not totally clear from the exam and also given her body habitus I think a laparoscopic approach for this is a better initial approach done open.? Although either 1 would work and both were discussed with the patient.? She understands the risks of any surgery including bleeding infection damage to structures need for further surgical procedures or hospitalizations due to complications.? But this hernias very symptomatic for her and she is very eager to proceed with repair.? I think she will tolerate a general anesthesia very well and would like to proceed with laparoscopic possible open ventral hernia repair as soon as she would like to schedule.
== END 2022-11-25 13:07 | disposition home or self-care (01) ==
LOC: OR 13:28 → AC 13:28
PROVIDERS: Admitting Provider Surgery; PCP Family Medicine; Referring Provider Surgery; Visit Provider Surgery
PROC: (CPT 49593; principal; 2022-11-21 12:30)
DX: K43.9 Ventral hernia without obstruction or gangrene (principal); R11.0 Nausea; G89.18 Other acute postprocedural pain; Z20.822 Contact with and (suspected) exposure to COVID-19
CPT/HCPCS: 49593; 36415; 74018; 82565; 87635; 94760; 94762; 97116; 97161; 97530; C9803; G0378; J0330; J0690; J1100; J1170; J1650; J1885; J2405; J2704; J3010

== ENCOUNTER → 2023-01-05 06:39 | Outpatient (CLI) | payer MEDICARE, SELFPAY ==
[2022-11-21 17:01] VITALS: BMI 45.3
--- NOTE | 2023-01-05 06:41 | DI.US.S_ITS ---
PROCEDURE: US ABDOMEN LIMITED INDICATIONS: PALPABLE LUMP SUP TO UMBILICUS. HERNIA REPAIR 6 WEEKS AGO TECHNIQUE: Real-time scanning was performed of the abdominal and retroperitoneal organs, with image documentation. COMPARISON: [facility], , US ABDOMEN LIMITED, 08/04/2022, 11:27. FINDINGS: At the patient directed area of palpable concern superior to the level of the umbilicus near the site of recent hernia repair, there is an oval, heterogeneously hypoechoic collection with internal septation and echogenic debris measuring approximately 6.4 x 6.7 x 5.1 cm in size. No internal vascularity. There is posterior acoustic enhancement. This is noted in the subcutaneous soft tissues of the anterior abdominal wall. IMPRESSION: 6.7 cm heterogeneous fluid collection in the subcutaneous tissues of the anterior abdominal wall near site of prior ventral hernia repair likely represents postsurgical fluid collection/seroma versus resolving hematoma. Recommend continued clinical surveillance with follow-up imaging as needed. Dictated by: Greg Carrera M.D. on 01/05/2023 at 8:15 Approved by: rGeg Carrera M.D. on 01/05/2023 at 8:18
== END ==
PROVIDERS: PCP Family Medicine; Referring Provider Surgery; Visit Provider Surgery
DX: T81.9XXA Unspecified complication of procedure, initial encounter (principal)
CPT/HCPCS: 76705

== ENCOUNTER → 2023-01-19 14:20 | Outpatient (CLI) | payer MEDICARE, SELFPAY ==
[2023-01-09 14:48] VITALS: BMI 45.3
--- NOTE | 2023-01-19 | DI.MG.S_ITS ---
BILATERAL DIGITAL SCREENING MAMMOGRAM 3D/2D WITH CAD: 01/19/2023 CLINICAL: Routine screening. Personal history of right breast cancer. Family history of breast cancer. Comparison is made to exams dated: 12/27/2021 mammogram and 12/23/2019 mammogram - Outside facility. There are scattered areas of fibroglandular density in both breasts (category b / 25%-50% glandular tissue). Current study was also evaluated with a Computer Aided Detection (CAD) system. There are benign post operative findings in the right breast. No significant masses, calcifications, or other findings are seen in either breast. There has been no significant interval change. IMPRESSION: BENIGN There is no mammographic evidence of malignancy. A 1 year screening mammogram is recommended. This exam was interpreted at Station ID: [id number]. NOTE: For mammograms, a report in lay terms will be sent to the patient. Approximately 15% of breast malignancies will not be visualized mammographically. In the management of a palpable breast mass, a negative mammogram must not discourage biopsy of a clinically suspicious lesion. Electronically Signed By: Daniel rosario/denise:01/23/2023 14:45:10 letter sent: Normal Exam ACR BI-RADS Category 2: Benign Finding(s) 3342F
== END ==
PROVIDERS: PCP Nurse Practitioner Family; Referring Provider Nurse Practitioner Family; Visit Provider Nurse Practitioner Family
DX: Z12.31 Encounter for screening mammogram for malignant neoplasm of breast (principal); Z80.3 Family history of malignant neoplasm of breast; Z85.3 Personal history of malignant neoplasm of breast
CPT/HCPCS: 77063; 77067

== ENCOUNTER → 2023-02-22 09:39 | Outpatient (CLI) | payer MEDICARE, SELFPAY ==
[2023-01-09 14:48] VITALS: BMI 45.3
--- NOTE | 2023-02-22 09:40 | DI.US.S_ITS ---
PROCEDURE: US ABDOMEN LIMITED INDICATIONS: follow up post op fluid collection. Recheck recurrent hernia TECHNIQUE: Real-time focused scanning was performed of the abdomen, with image documentation. COMPARISON: [facility], , US ABDOMEN LIMITED, 01/05/2023, 7:10. FINDINGS: Limited ultrasound examination of prior periumbilical hernia repair site shows heterogeneous fluid collection in anterior abdominal wall now measures 4.7 x 4.4 x 4.6 cm in size compared to 6.4 x 5 x 6.7 cm in size on previous study. IMPRESSION: Interval decrease in size of patient's known anterior abdominal wall fluid collection near the umbilical hernia repair site likely represent postsurgical seroma. Dictated by: Sergio Rausch M.D. on 02/22/2023 at 10:21 Approved by: Sergio Rausch M.D. on 02/22/2023 at 10:22
== END ==
PROVIDERS: PCP Nurse Practitioner Family; Referring Provider Surgery; Visit Provider Surgery
DX: G89.18 Other acute postprocedural pain (principal); R10.9 Unspecified abdominal pain
CPT/HCPCS: 76705

== ENCOUNTER → 2023-02-28 08:30 | Outpatient (CLI) | payer MEDICARE, SELFPAY ==
[2023-01-09 14:48] VITALS: BMI 45.3
[2023-02-28 10:01] LABS: Alanine Aminotransferase 18 IU/L (<35); Albumin 3.8 g/dL (3.5-5.0); Albumin Globulin Ratio 1.4 (1.0-2.8); Alkaline Phosphatase 64 U/L (38-126); Aspartate Aminotransferase 21 IU/L (14-36); Bilirubin Total 0.3 mg/dL (0.2-1.3); Blood Urea Nitrogen 12 mg/dL (7-17); Calcium 8.7 mg/dL (8.4-10.2); Carbon Dioxide 31 mmol/L (22-32); Chloride 105 mmol/L (98-107); Cholesterol 157 mg/dL (140-199); Estimated Glomerular Filt Rate > 60 mL/min (>60); Globulin 2.7 g/dL (1.7-4.1); Glucose 89 mg/dL (80-110); HDL Cholesterol 53 mg/dL (40-60); HEMOLYSIS < 15 (0-50); Iron 75 ug/dL (37-170); LDL Cholesterol Calculated 59 mg/dL (<100); Potassium 4.3 mmol/L (3.4-5.1); Sodium 140 mmol/L (137-145); Total Protein 6.5 g/dL (6.3-8.2); Triglycerides 227 mg/dL (35-150)
[2023-02-28 10:12] LABS: Percent Iron Saturation 30 % (15-50); Total Iron Binding Capacity 251 ug/dL (265-497); Transferrin 172 mg/dL (206-381)
[2023-02-28 10:32] LABS: Add Manual Diff / Slide Review NO; Basophils Absolute Auto 100 /uL (0-100); Eosinophils Absolute Auto 100 /uL (0-450); Eosinophils Percent Auto 1.3 % (2-4); Hematocrit 39.7 % (36-46); Hemoglobin 13.2 g/dL (12.0-16.0); Lymphocytes Absolute Auto 1200 /uL (1100-4500); Mean Corpuscular HGB Conc 33.2 % (30-36); Mean Corpuscular Hemoglobin 29.8 PG (26-34); Mean Corpuscular Volume 89.9 fL (80-100); Monocytes Absolute Auto 400 /uL (0-900); Monocytes Percent Auto 8.3 % (3-14); Neutrophils Absolute Auto 3400 /uL (1500-7000); Neutrophils Percent Auto 66.4 % (50-75); Platelet Count 192 X10^3/uL (150-400); Red Blood Cell Count 4.42 X10^6/uL (4.0-5.2); Red Cell Distribution Width 14.5 % (11.6-14.8); White Blood Cell Count 5.1 X10^3/uL (4.5-11.0)
[2023-02-28 10:36] LABS: Ferritin 331 ng/mL (11-264)
[2023-02-28 11:07] LABS: Folate 5.4 ng/mL (2.76-20.0); Vitamin B12 843 pg/mL (239-931)
== END ==
PROVIDERS: PCP Nurse Practitioner Family; Referring Provider Nurse Practitioner Family; Visit Provider Nurse Practitioner Family
DX: D64.9 Anemia, unspecified (principal); E78.5 Hyperlipidemia, unspecified
CPT/HCPCS: 36415; 80053; 80061; 82607; 82728; 82746; 83540; 83550; 85025

== ENCOUNTER → 2023-11-07 08:52 | Outpatient (CLI) | payer MEDICARE, SELFPAY ==
[2023-01-09 14:48] VITALS: BMI 45.3
[2023-11-07 09:47] LABS: Add Manual Diff / Slide Review NO; Basophils Absolute Auto 0 /uL (0-100); Eosinophils Absolute Auto 100 /uL (0-450); Eosinophils Percent Auto 1.9 % (2-4); Hematocrit 41.8 % (36-46); Hemoglobin 13.9 g/dL (12.0-16.0); Lymphocytes Absolute Auto 900 /uL (1100-4500); Lymphocytes Percent Auto 26.2 % (25-40); Mean Corpuscular HGB Conc 33.2 % (30-36); Mean Corpuscular Hemoglobin 30.2 PG (26-34); Mean Corpuscular Volume 90.8 fL (80-100); Monocytes Absolute Auto 300 /uL (0-900); Neutrophils Absolute Auto 2100 /uL (1500-7000); Neutrophils Percent Auto 60.9 % (50-75); Platelet Count 181 X10^3/uL (150-400); Red Blood Cell Count 4.61 X10^6/uL (4.0-5.2); Red Cell Distribution Width 14.5 % (11.6-14.8); White Blood Cell Count 3.5 X10^3/uL (4.5-11.0)
[2023-11-07 10:15] LABS: HEMOLYSIS < 15 (0-50); Iron 98 ug/dL (37-170)
[2023-11-07 10:25] LABS: Percent Iron Saturation 41 % (15-50); Total Iron Binding Capacity 241 ug/dL (265-497); Transferrin 200 mg/dL (206-381)
[2023-11-07 10:26] LABS: Vitamin D 25 Hydroxy (D3) 49.7 ng/mL (30.0-100.0)
[2023-11-07 10:46] LABS: Ferritin 551 ng/mL (11-264)
== END ==
PROVIDERS: PCP Nurse Practitioner Family; Referring Provider Nurse Practitioner Family; Visit Provider Nurse Practitioner Family
DX: D50.9 Iron deficiency anemia, unspecified (principal); E55.9 Vitamin D deficiency, unspecified
CPT/HCPCS: 36415; 82306; 82728; 83540; 83550; 85025

== ENCOUNTER → 2024-02-06 08:11 | Outpatient (CLI) | payer MEDICARE, SELFPAY ==
[2023-01-09 14:48] VITALS: BMI 45.3
--- NOTE | 2024-02-06 08:14 | DI.MG.S_ITS ---
BILATERAL DIGITAL SCREENING MAMMOGRAM 3D/2D WITH CAD POST LUMPECTOMY: 02/06/2024 CLINICAL: Routine screening. Personal history of right breast cancer. Comparison is made to exams dated: 01/19/2023 mammogram - [facility], 01/14/2022 mammogram, and 12/27/2021 mammogram - Outside facility. There are scattered areas of fibroglandular density in both breasts (category b / 25%-50% glandular tissue). Current study was also evaluated with a Computer Aided Detection (CAD) system. There are benign post operative findings in the right breast. No significant masses, calcifications, or other findings are seen in either breast. There has been no significant interval change. IMPRESSION: BENIGN There is no mammographic evidence of malignancy. A 1 year screening mammogram is recommended. This exam was interpreted at Station ID: [id number]. NOTE: For mammograms, a report in lay terms will be sent to the patient. Approximately 15% of breast malignancies will not be visualized mammographically. In the management of a palpable breast mass, a negative mammogram must not discourage biopsy of a clinically suspicious lesion. Electronically Signed By: Jeremías good/denise:02/06/2024 13:16:37 letter sent: Normal Exam ACR BI-RADS Category 2: Benign Finding(s) 3342F
== END ==
LOC: MAMMO 08:13
PROVIDERS: PCP Nurse Practitioner Family; Referring Provider Nurse Practitioner Family; Visit Provider Nurse Practitioner Family
DX: Z12.31 Encounter for screening mammogram for malignant neoplasm of breast (principal); Z80.3 Family history of malignant neoplasm of breast; R92.323 Mammographic fibroglandular density, bilateral breasts
CPT/HCPCS: 77063; 77067

== ENCOUNTER 2024-02-21 23:11 | Emergency (ER) | payer MEDICARE, SELFPAY ==
[2023-01-09 14:48] VITALS: BMI 45.3
[2024-02-21 23:17] VITALS: BP 224/99; PULSE 99; RESP 16; TEMP 35.9; O2SAT 96; BMI 45.9
--- NOTE | 2024-02-21 23:28 | EKG_ITS ---
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
--- NOTE | 2024-02-21 23:29 | EKG_ITS ---
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
[2024-02-22 01:28] VITALS: PULSE 77; O2SAT 93
[2024-02-22 01:30] VITALS: BP 184/85; PULSE 74; O2SAT 94
--- NOTE | 2024-02-22 01:59 | ED_ITS ---
HPI - Dental/Oral General Chief complaint: Dental/Oral Stated complaint: pain in jaw left side Time Seen by Provider: 02/22/24 01:50 Source: patient Mode of arrival: Ambulatory History of Present Illness HPI Narrative: 73-year-old female has left jaw area discomfort, in the area of temporal mandibular joint, saw a dentist for this approximately 2 months ago, who is worried about TMJ syndrome, did not feel there was any dental infection at that time, was given a prescription for muscle relaxants which she was not convinced was helpful at the time. Symptoms did resolve. Now since yesterday having left TMJ area discomfort again, some discomfort temporal region of the left head, and to the angle of the jaw, worse with movement, took Tylenol, symptoms improved. No shortness of breath, diaphoresis, no radiation to the arm or back. Related Data Home Medications Medication Instructions Recorded Confirmed acetaminophen 650 mg 650 mg PO DAILY 10/17/22 02/20/23 tablet,extended release (Tylenol Arthritis Pain) ascorbic acid (vitamin C) 1,000 mg 1 g PO DAILY 10/17/22 02/20/23 tablet cholecalciferol (vitamin D3) 25 75 mcg PO DAILY 10/17/22 02/20/23 mcg (1,000 unit) capsule loratadine 10 mg tablet (Claritin) 10 mg PO DAILY 10/17/22 02/20/23 mecobalamin (vitamin B12) 1,000 1,000 mcg PO DAILY 10/17/22 02/20/23 mcg chewable tablet rosuvastatin 5 mg tablet 5 mg PO DAILY 11/21/22 02/20/23 Previous Rx's Medication Instructions Recorded docusate sodium 100 mg capsule 100 mg PO BID #30 caps 11/25/22 psyllium husk (with sugar) 3.4 1 tbsp PO BID #822 grams 11/25/22 gram/7 gram oral powder (Fiber (psyllium husk-sugar)) methocarbamol 500 mg tablet 500 mg PO TID rhomboid muscle 02/22/24 strain 7 days #21 tabs Allergies Allergy/AdvReac Type Severity Reaction Status Date / Time Penicillins Allergy Rash, welts Verified 02/20/23 11:36 Review of Systems Review of Systems Narrative: per HPI Patient History Medical History Arthritis Breast cancer (05/2017) Former smoker History of transfusion (2008) HTN (hypertension) Surgical History Hx of appendectomy (1971) Hx of cholecystectomy (2010) Hx of colonoscopy Hx of tubal ligation (1976) Hx of ventral hernia repair Social History household members: spouse Smoking Status: Former smoker alcohol intake: current Smoking Status: Former smoker alcohol intake frequency: holidays/special occasions only Substance Use Type: does not use Exam Narrative Exam Narrative: GENERAL: Well-developed patient, in mild distress. HEAD: Atraumatic. Normocephalic. EYES: Pupils equal round and reactive. Extraocular motions intact. No scleral icterus. No injection or drainage. ENT: Nose without bleeding, purulent drainage. Throat without erythema, tonsillar hypertrophy or exudate. Airway patent. NECK: Trachea midline. Non tender CARDIOVASCULAR: Regular rate and rhythm without murmurs, gallops, or rubs. RESPIRATORY: Clear to auscultation. Breath sounds equal bilaterally. No wheezes, rales, or rhonchi. GASTROINTESTINAL: Abdomen soft, non-tender, nondistended. EXTREMITIES: No edema or joint tenderness. BACK: Nontender without deformity or crepitance. No flank tenderness. NEURO: AOx3. SKIN: No rash or erythema of visible areas Initial Vital Signs Initial Vital Signs: Vital Signs Temperature 96.7 F L 02/21/24 23:17 Pulse Rate 99 H 02/21/24 23:17 Respiratory Rate 16 02/21/24 23:17 Blood Pressure 224/99 H 02/21/24 23:17 Pulse Oximetry 96 02/21/24 23:17 Oxygen Delivery Method Room Air 02/21/24 23:17 Course Orders Ordered: ED Orders 02/21/24 23:23 EKG-12 Lead Stat Discontinued Medications Methocarbamol (Methocarbamol 500 Mg Tablet) 500 mg PO NOW ONE Stop: 02/22/24 02:18 Last Admin: 02/22/24 02:22 Dose: 500 mg Documented By: RITCHIE Vital Signs Vital signs: Vital Signs - 8 hr 02/22/24 01:28 02/22/24 01:30 02/22/24 01:30 Pulse Rate 77 74 Respiratory Rate Blood Pressure 184/85 H Pulse Oximetry 93 94 02/22/24 02:00 02/22/24 02:00 Pulse Rate 73 Respiratory Rate 20 Blood Pressure 160/73 H Pulse Oximetry 94 [facility] - Dental/Oral ECG Data Attestation: I personally reviewed and interpreted this ECG as follows: Interpretation: Normal sinus rhythm with rate of 94, right bundle-branch block pattern noted, KS 124. QRS 130. QTC 470. [facility] Narrative Medical decision making narrative: 73-year-old with left jaw TMJ area discomfort, similar problems with less severity 2 months ago, consider TMJ syndrome. No upper left teeth in place, doubt referred pain from dental infection. She took Tylenol prior to arrival, symptoms seem to be improved, consider trial of muscle relaxant if this might be TMJ or muscle spasm related symptoms. P.o. dose of methocarbamol, prescription for further course if needed. Suggested otolaryngology follow up, given contact information discharge materials for office of Dr. Salcedo. Return precautions discussed. Stable, improved, home with family EKG done due to initial elevated blood pressure, no labs sent, blood pressure improved with resolution of pain symptoms without specific treatment in the ED, systolic blood pressure on repeat 160 noted. EKG shows right bundle-branch block pattern Discharge Plan Departure Patient Disposition: Home Clinical Impression: TMJ tenderness, left Instructions: TMJ Syndrome (Alternative Therapy), DI for Temporomandibular Disorder Activity Restrictions/Additional Instructions: Left jaw pain in the area of the temporomandibular joint, some radiation of pain further up in the temporalis region of the scalp on the same side, and also to the lower jaw, unclear cause. No injury or trauma. No upper dental infection on that side suspected. Similar symptoms but different radiation pattern 2 months ago, trial of muscle relaxant at that time, unclear what class of muscle relaxant was tried, little response. Tylenol taken earlier today, symptoms improved. EKG without obvious ischemic changes, initial blood pressure elevation on triage, improved without specific treatment when pain also was better controlled. Trial of methocarbamol/Robaxin muscle relaxant, dose in ED prescribed, prescription sent to your pharmacy. Consider consultation with otolaryngology to consider TMJ syndrome, help reviewed or confirm the diagnosis, and help with treatment options if confirmed or suspected. Take Tylenol as needed for discomfort. Contact information given for local field tech Dr. Salcedo office, call tomorrow to make appointment early next week. Return to this/nearest emergency department for any change worsening symptoms or any concerns prior Prescriptions: New methocarbamol 500 mg tablet 500 mg PO TID 7 Days Qty: 21 0RF No Action cholecalciferol (vitamin D3) 25 mcg (1,000 unit) capsule 75 mcg PO DAILY ascorbic acid (vitamin C) 1,000 mg tablet 1 g PO DAILY mecobalamin (vitamin B12) 1,000 mcg tablet,chewable 1,000 mcg PO DAILY acetaminophen [Tylenol Arthritis Pain] 650 mg tablet extended release 650 mg PO DAILY loratadine [Claritin] 10 mg tablet 10 mg PO DAILY rosuvastatin 5 mg Tablet 5 mg PO DAILY docusate sodium 100 mg Capsule 100 mg PO BID Qty: 30 0RF Rx Instructions: Take while taking pain medicine to prevent constipation Fiber (psyllium husk-sugar) 3.4 gram/7 gram powder 1 tbsp PO BID Qty: 822 0RF Referrals: Jaiden Salcedo MD [Physician] - Silvia De La Torre ARNP, RN [Primary Care Provider] - Stand Alone Forms: Patient Portal/API
[2024-02-22 02:00] VITALS: BP 160/73; PULSE 73; RESP 20; O2SAT 94
[2024-02-22] MEDS: methocarbamoL 500 MG TABLET PO (02:22)
== END 2024-02-22 02:32 | disposition home or self-care (01) ==
PROVIDERS: Emergency Provider Emergency Medicine; PCP Nurse Practitioner Family
DX: M26.622 Arthralgia of left temporomandibular joint (principal); R03.0 Elevated blood-pressure reading, without diagnosis of hypertension
CPT/HCPCS: 93005; 99283

== ENCOUNTER → 2024-03-06 12:09 | Outpatient (CLI) | payer MEDICARE, SELFPAY ==
[2023-01-09 14:48] VITALS: BMI 45.3
[2024-03-06 13:22] LABS: BUN Creatinine Ratio 20.5 (6-22); Blood Urea Nitrogen 15 mg/dL (7-17); Calcium 8.8 mg/dL (8.4-10.2); Carbon Dioxide 27 mmol/L (22-32); Chloride 108 mmol/L (98-107); Estimated Glomerular Filt Rate > 60 mL/min (>60); Glucose 78 mg/dL (80-110); HEMOLYSIS < 15 (0-50); Potassium 4.2 mmol/L (3.4-5.1); Sodium 140 mmol/L (137-145)
== END ==
PROVIDERS: PCP Nurse Practitioner Family; Referring Provider Nurse Practitioner Family; Visit Provider Nurse Practitioner Family
DX: G50.0 Trigeminal neuralgia (principal)
CPT/HCPCS: 36415; 80048

== ENCOUNTER → 2024-03-08 11:09 | Outpatient (CLI) | payer MEDICARE, SELFPAY ==
[2023-01-09 14:48] VITALS: BMI 45.3
--- NOTE | 2024-03-08 11:11 | DI.MRI.S_ITS ---
PROCEDURE: MR HEAD/BRAIN WO/W CON INDICATIONS: LEFT TRIGEMINAL NEURALGIA TECHNIQUE: Noncontrast sagittal T1 spin echo, axial T2 fast spin echo, axial FLAIR, axial gradient echo, axial diffusion and ADC through the brain. Axial/sagittal/coronal 3-D CISS, thin-slice axial T1 spin echo with fat saturation through the skull base. After the administration of contrast, axial and coronal thin-slice T1 spin echo with fat saturation through the skull base, axial and coronal and sagittal T1 spin echo with fat saturation through the brain. COMPARISON: None. FINDINGS: Image quality: Excellent. Trigeminal nerves: The right trigeminal nerve appears normal in size and appearance. The left trigeminal nerve appears atrophic compared to the right. There is no abnormal enhancement. No masses are identified. The left superior cerebellar artery appears directly adjacent to the left trigeminal nerve with likely abutment. CSF spaces: Ventricles are normal in size and shape. No extra-axial fluid collections. Basal cisterns are patent. Brain: No intracranial bleeds or mass effects. No abnormal intracranial enhancement. There is mild age-related global volume loss and chronic microvascular ischemic changes. Diffusion weighted images show no acute ischemic insults. [place]-white matter interface is intact. Brainstem is normal. Normal intravascular flow voids are present. Skull and face: Calvarial marrow signal is normal. Orbits appear normal. Sinuses: Sinuses and mastoids appear clear. IMPRESSION: The left trigeminal nerve appears atrophic compared to the right. The right appears within normal limits. There is no abnormal enhancement. The left superior cerebellar artery is directly adjacent to the left trigeminal nerve with likely abutment. Age-appropriate global volume loss and mild chronic microvascular ischemic changes. No acute intracranial abnormalities. Dictated by: Jessee Price M.D. on 03/10/2024 at 10:18 Approved by: Jessee Price M.D. on 03/10/2024 at 10:23
== END ==
PROVIDERS: PCP Nurse Practitioner Family; Referring Provider Nurse Practitioner Family; Visit Provider Nurse Practitioner Family
DX: G50.0 Trigeminal neuralgia (principal)
CPT/HCPCS: 70553; A9579

== ENCOUNTER → 2024-03-24 10:34 | Outpatient (CLI) | payer MEDICARE, SELFPAY ==
[2023-01-09 14:48] VITALS: BMI 45.3
[2024-03-24 12:14] LABS: Add Manual Diff / Slide Review NO; Basophils Absolute Auto 0 /uL (0-100); Basophils Percent Auto 0.4 % (0-2); Eosinophils Absolute Auto 0 /uL (0-450); Eosinophils Percent Auto 0.8 % (2-4); Hematocrit 42.4 % (36-46); Hemoglobin 14.1 g/dL (12.0-16.0); Lymphocytes Absolute Auto 1300 /uL (1100-4500); Lymphocytes Percent Auto 20.5 % (25-40); Mean Corpuscular HGB Conc 33.3 % (30-36); Mean Corpuscular Hemoglobin 30.8 PG (26-34); Mean Corpuscular Volume 92.6 fL (80-100); Monocytes Absolute Auto 400 /uL (0-900); Neutrophils Absolute Auto 4400 /uL (1500-7000); Neutrophils Percent Auto 71.3 % (50-75); Platelet Count 198 X10^3/uL (150-400); Red Blood Cell Count 4.58 X10^6/uL (4.0-5.2); Red Cell Distribution Width 13.9 % (11.6-14.8); White Blood Cell Count 6.2 X10^3/uL (4.5-11.0)
[2024-03-24 12:24] LABS: Alanine Aminotransferase 21 IU/L (<35); Albumin 4.3 g/dL (3.5-5.0); Albumin Globulin Ratio 2.2 (1.0-2.8); Alkaline Phosphatase 67 U/L (38-126); Aspartate Aminotransferase 27 IU/L (14-36); BUN Creatinine Ratio 16.7 (6-22); Bilirubin Total 0.6 mg/dL (0.2-1.3); Blood Urea Nitrogen 15 mg/dL (7-17); Calcium 9.5 mg/dL (8.4-10.2); Carbon Dioxide 27 mmol/L (22-32); Chloride 106 mmol/L (98-107); Cholesterol 141 mg/dL (140-199); Estimated Glomerular Filt Rate > 60 mL/min (>60); Glucose 73 mg/dL (80-110); HDL Cholesterol 60 mg/dL (40-60); HEMOLYSIS < 15 (0-50); LDL Cholesterol Calculated 45 mg/dL (<100); Potassium 4.7 mmol/L (3.4-5.1); Sodium 139 mmol/L (137-145); Total Protein 6.3 g/dL (6.3-8.2); Triglycerides 180 mg/dL (35-150)
[2024-03-24 12:33] LABS: HEMOLYSIS < 15 (0-50); Iron 70 ug/dL (37-170)
[2024-03-24 12:38] LABS: Vitamin D 25 Hydroxy (D3) 48.4 ng/mL (30.0-100.0)
[2024-03-24 12:46] LABS: Percent Iron Saturation 26 % (15-50); Total Iron Binding Capacity 266 ug/dL (265-497); Transferrin 214 mg/dL (206-381)
[2024-03-24 12:57] LABS: Ferritin 377 ng/mL (11-264)
== END ==
PROVIDERS: PCP Nurse Practitioner Family; Referring Provider Nurse Practitioner Family; Visit Provider Nurse Practitioner Family
DX: E78.5 Hyperlipidemia, unspecified (principal); D50.9 Iron deficiency anemia, unspecified; E55.9 Vitamin D deficiency, unspecified
CPT/HCPCS: 36415; 80053; 80061; 82306; 82728; 83540; 83550; 85025